=== PATIENT | male | born 1975 | race Caucasian/White ===

== ENCOUNTER 2020-01-06 20:19 | Inpatient (IN) ==
[2020-01-06 20:53] LABS: Urine Bilirubin Negative (NEGATIVE); Urine Blood Negative /ul (NEGATIVE); Urine Ketone 5 mg/dL (NEGATIVE); Urine Nitrite Negative (NEGATIVE); Urine Protein Negative (NEGATIVE); Urine Specific Gravity <=1.005 SP.GR. (1.005-1.030); Urine Urobilinogen Normal (NORMAL)
[2020-01-06] MEDS ORDERED: NYSTATIN ORAL.SUSP PO ONE (20:53)
--- NOTE | 2020-01-06 20:54 | ERNOTE ---
Medical Problem HPI - General Chief Complaint: Nausea/Vomiting Time Seen by Provider: 01/06/20 20:38 Source: patient, RN notes reviewed Exam Limitations: no limitations - Immun/Allergies/Home Medications Immunizations: IMMUNIZATION HX Immunizations Up to Date Yes History of Influenza Vaccine Yes Allergies/Adverse Reactions: Allergies No Known Allergies Allergy (Unverified 01/06/20 20:34) Home Medications: HOME MEDICATIONS Citalopram HBr 05/29/14 [Last Taken Unknown] Divalproex Sodium 05/29/14 [Last Taken Unknown] Tramadol HCl 05/29/14 [Last Taken Unknown] - History of Present History Narrative: Patient is a 44-year-old white male with past medical history significant for prediabetes, hypertension and morbid obesity, with recent 45 pound weight loss, has had several days of polyuria and polydipsia, white substance around the glans of his penis, sore throat and tongue, increasing fatigue, diarrhea and vomiting. 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 He denies any fevers or chills, but does have malaise and body aches. He denies headache, cough or shortness of breath or chest pain. [facility] with labs being done but has no results of those and is concerned about progression of his symptoms and how infectious he might be. Because of this he came to the ER for evaluation. Timing: getting worse Severity: moderate Modifying Factors - (Improves): Present: rest Modifying Factors - (Worsens): Present: eating Review of Systems - Review of Systems Constitutional: Present: fatigue, malaise. Absent: fever, chills, weakness EYE: Absent: blurred vision, double vision ENT: Present: sore throat. Absent: nose congestion, nasal drainage, throat swelling Respiratory: Absent: shortness of breath, cough, orthopnea Cardiology: Absent: chest pain, palpitations, edema, claudication Gastrointestinal/Abdominal: Present: nausea, vomiting, diarrhea. Absent: constipation, abdominal pain, eating less, drinking less Genitourinary: Present: See HPI, frequency, pain, dysuria. Absent: hematuria Musculoskeletal: Absent: back pain, muscle pain, muscle stiffness, neck pain Skin: Present: See HPI, rash, lesions, lumps. Absent: dryness Neurological: Absent: anxiety, depressed Endocrine: Present: increased thirst, increased urine. Absent: excessive sweating, flushing, intolerance to heat, intolerance to cold, increased hunger, unexplained weight gain Hematologic/Lymphatic: Absent: easy bruising, easy bleeding Psych: Absent: anxiety, depressed Medical History (Last Reviewed 01/06/20 @ 20:50 by Raymundo Alvarado MD) Hypertension PTSD (post-traumatic stress disorder) Pre-diabetes Surgical History: Surgical History (Last Reviewed 01/06/20 @ 20:50 by Raymundo Alvarado MD) History of knee surgery Social History: (Last Reviewed 01/06/20 @ 20:50 by Raymundo Alvarado MD) Tobacco: Smoking Status: Former smoker Physical Exam - Physical Exam General Appearance: Present: wd/wn, alert, mild distress, moderate distress, obese Head Exam: Present: normal inspection, no evidence of injury Eye Exam: Normal inspection: bilateral, PERRL: bilateral, EOMI: bilateral Ears, Nose, Throat: Present: normal except -, dry mucous membranes - With white plaque on the tongue and uvula. Neck: Present: normal inspection, nontender, supple, full range of motion Respiratory: Present: no respiratory distress Cardiovascular/Chest: Present: regular rate, rhythm Gastrointestinal/Abdominal: Present: normal bowel sounds, nontender, nondistended, soft, no organomegaly Male Genitals Exam: Present: erythema, other - white plaque at base of glans, erythema of the distal skin on shaft. Absent: urethral discharge Extremity Exam: Present: no edema Neurological Exam: Present: alert, oriented, normal mood/affect, no motor/sensory deficits Skin Exam: Present: normal color, warm/dry Progress - Results and Orders Patient's Lab Results:: I have reviewed the patient's lab results. Results and Orders: CBC is normal. UA is negative except for glucose of 1000. Laboratory Tests 01/06/20 01/06/20 20:55 20:55 Influenza Type A Ag Negative Influenza Type B Ag Negative Group A Strep Rapid Negative Glucose is 634, patient is diabetic and given symptoms would be concern for possible ketoacidosis. Will check an ABG and serum ketones. We will also give patient a liter of IV saline and possibly some IV insulin. Laboratory Tests 01/06/20 20:55 Serum Ketones Positive - 20mg/dl H Laboratory Tests 01/06/20 01/06/20 20:55 20:55 Sodium 128 L Plasma Sodium 137 Potassium 3.9 Chloride 92 L Carbon Dioxide 26.3 Anion Gap 13.6 BUN 8 Creatinine 1.15 Est GFR (Non-Af Amer) 74 BUN/Creatinine Ratio 7.0 L Random Glucose 634 H Mean Blood Glucose 264 Hemoglobin A1c 10.5 H Calcium 8.8 Calcium Adj for Albumin 8.7 Total Bilirubin 1.2 H AST 69 H ALT 135 H Alkaline Phosphatase 208 H Total Protein 7.2 Albumin 3.7 Findings consistent with diabetic ketoacidosis. We will continue IV fluids. Aw aiting ABG results but anticipate admission to hospital with DKA protocol. Patient does appear to be fairly stable but lab results are concerning Laboratory Tests 01/06/20 21:45 pCO2 40.0 pO2 69.7 L HCO3 25.5 Total CO2 26.7 H Base Excess 1.1 ABG pH 7.42 ABG O2 Sat (Measured) 94.4 pH is normal, no acidosis. Patient is just hyperglycemic with serum ketones. - Vital Signs Patient's Vital Signs:: I have reviewed the patient's vital signs. Vital Signs: Vital Signs 01/06/20 20:23 Temperature 36.3 C Pulse Rate 88 Respiratory Rate 18 Blood Pressure 185/97 H O2 Sat by Pulse Oximetry 95 - EKG EKG #1 EKG: NSR, no ST T wave changes EKG read: Interp. by me - Progress/Reassessment Chief Complaint: Nausea/Vomiting Progress Note-Subjective: 01/06/20 21:30 Patient also shows me a carbuncle on his right side just inferior to his right axilla. Does not appear amenable to I&D. Because of this we will give him a shot of Rocephin. - Transfer of Care Expected Disposition: Admit Additional Notes: Case discussed with Dr. Garnica. Given normal CO2 and anion gap patient is well compensated, but given glucose elevation and significant ketones feel it is appropriate to treat him using our DKA protocol, but fits a hyperosmolar h yperglycemic state. Will admit to the hospital for this. Do not believe that he needs SCU status given stability and appearance of the patient Plan - Plan Plan: Overall given patient's physical exam and complaints I would be concerned about diabetes. Will check CMP. Will also check CBC make sure there is no infectious etiology along with strep and influenza. Because of his findings are consistent with thrush we will give him some nystatin p.o. Depending on what his blood sugars come back at we will determine whether we do any further testing. Patient has a blood glucose of 634 so would be concerned about possible diabetic ketoacidosis will add ABG and serum ketones. Given a liter of IV fluids. Labs were discussed with patient. Discussed admission to the hospital with the patient and he is amenable to this. We will start the DKA protocol initial orders. More complete orders will be done in his admission order set. Given patient's elevated blood pressure despite IV fluids we will give him 20 mg of lisinopril and monitor his blood pressures from this. He states he has been on as many as 4 blood pressure medicines in the past but had stopped those secondary to significant weight loss. Given body habitus would suspect possible obstructive sleep apnea as a contributor to his issues. Departure Clinical Impression: Balanitis, Elevated blood pressure reading with diagnosis of hypertension, Thrush of mouth and esophagus, Acute hyperglycemia, Diabetic ketosis without coma Diabetes Qualifiers: Diabetes mellitus type: type 2 Diabetes mellitus jail insulin use: without jail use Diabetes mellitus complication status: without complication Qualified Code(s): E11.9 - Type 2 diabetes mellitus without complications - Departure Disposition: Still a patient Condition: Stable
[2020-01-06 21:04] LABS: Hematocrit 46.4 % (42.0-52.0); Mean Cell Volume 82.4 fl (78-100); Mean Corpuscular Hemoglobin 28.4 pg (27-31); Mean Corpuscular Hgb Conc 34.5 g/dl (32-36); Mean Platelet Volume 11.7 fl (8-11.3); Neutrophil # 4.8 K/mm3 (1.3-6.0); Neutrophil % 65.2 % (42-75.0); Platelet Count 170 K/mm3 (150-450); Red Blood Count 5.63 M/mm3 (4.7-6.0); Red Cell Distribution Width 12.7 % (11.5-14.0); White Blood Count 7.3 K/mm3 (4.0-10.5)
[2020-01-06 21:04] LABS: Urine Appearance Clear (CLEAR); Urine Color Pale Yellow
[2020-01-06 21:05] LABS: Urine Bacteria None Seen; Urine RBC None Seen /hpf (0-5); Urine WBC None Seen /hpf (0-5)
[2020-01-06 21:17] LABS: Albumin * 3.7 gm/dl (3.4-5.0); Anion Gap 13.6 mmol/L (6.8-13.8); Bilirubin, Total 1.2 mg/dL (0.0-1.1); Ca. Corrected For Albumin 8.7 mg/dL (8.4-10.2); Calcium * 8.8 mg/dL (7.9-10.9); Carbon Dioxide 26.3 mmol/L (24-32.6); Potassium 3.9 mmol/L (3.4-4.6); Total Protein 7.2 gm/dL (6.2-8.2)
[2020-01-06] MEDS ORDERED: NORMAL SALINE 1,000 ML IV ONE (21:25)
[2020-01-06 21:27] LABS: Hemoglobin A1C 10.5 % (4.00-6.0)
[2020-01-06] MEDS ORDERED: LIDOCAINE HCL 50 ML VIAL IM ONE (21:31)
[2020-01-06] MEDS ORDERED: INSULIN REGULAR, HUMAN 100 UNITS/ML VIAL IV ONE (21:58)
[2020-01-06] MEDS ORDERED: INSULIN REGULAR, HUMAN 100 UNITS in NORMAL SALINE 100 ML IV PRN ×2 (22:24)
[2020-01-06] MEDS ORDERED: LISINOPRIL 10 MG TABLET ONE (22:37)
[2020-01-06] MEDS ORDERED: LISINOPRIL 20 MG TABLET PO ONE (22:45)
[2020-01-06] MEDS: POTASSIUM CHLORIDE 20 MEQ in NORMAL SALINE 1,000 ML IV SCH (23:21)
[2020-01-07] MEDS: POTASSIUM CHLORIDE 20 MEQ in NORMAL SALINE 1,000 ML IV SCH ×2 (03:35→12:00)
[2020-01-07 06:32] LABS: Hematocrit 44.2 % (42.0-52.0); Hemoglobin 14.8 gm/dL (13.5-18.0); Mean Cell Volume 83.2 fl (78-100); Mean Corpuscular Hemoglobin 27.9 pg (27-31); Mean Corpuscular Hgb Conc 33.5 g/dl (32-36); Neutrophil # 3.6 K/mm3 (1.3-6.0); Neutrophil % 43.2 % (42-75.0); Platelet Count 173 K/mm3 (150-450); Red Blood Count 5.31 M/mm3 (4.7-6.0); Red Cell Distribution Width 12.9 % (11.5-14.0); White Blood Count 8.4 K/mm3 (4.0-10.5)
[2020-01-07 06:46] LABS: Albumin * 3.2 gm/dl (3.4-5.0); Anion Gap 11.1 mmol/L (6.8-13.8); BUN/Creatinine Ratio 8.4 (9.0-21.6); Ca. Corrected For Albumin 8.6 mg/dL (8.4-10.2); Calcium * 8.3 mg/dL (7.9-10.9); Carbon Dioxide 28.7 mmol/L (24-32.6); Potassium 2.8 mmol/L (3.4-4.6); Total Protein 6.3 gm/dL (6.2-8.2)
[2020-01-07 07:56] LABS: Urine Bilirubin Negative (NEGATIVE); Urine Blood Negative /ul (NEGATIVE); Urine Ketone Negative (NEGATIVE); Urine Nitrite Negative (NEGATIVE); Urine Protein Negative (NEGATIVE); Urine Urobilinogen Normal (NORMAL)
[2020-01-07 08:03] LABS: Urine Appearance Clear (CLEAR); Urine Color Dark Yellow; Urine RBC None Seen /hpf (0-5); Urine WBC None Seen /hpf (0-5)
[2020-01-07 08:04] LABS: Urine Bacteria TRACE
[2020-01-07] MEDS ORDERED: NYSTATIN ORAL.SUSP PO SCH (09:00)
[2020-01-07] MEDS ORDERED: LISINOPRIL 20 MG TABLET PO SCH (09:00)
[2020-01-07] MEDS ORDERED: NYSTATIN TP SCH (09:00)
[2020-01-07] MEDS ORDERED: TRIAMCIN APPL TP SCH (09:00)
[2020-01-07] MEDS: NYSTATIN TP SCH ×2 (09:39→21:02)
[2020-01-07] MEDS: TRIAMCIN APPL TP SCH ×2 (09:39→21:02)
[2020-01-07] MEDS ORDERED: POTASSIUM CHLORIDE 20 MEQ TABLET.SA PO ONE (11:25)
--- NOTE | 2020-01-07 11:25 | HP ---
Chief Complaint - Chief Complaint Date of Service: 01/07/20 Time of Service: 09:00 Chief Complaint: New onset diabetes, hyperglycemia, dehydration, oral and penile candidiasis, boil in the right lateral chest, abnormal LFTs, ketosis without acidosis History of Present Illness: Tariq Millan is a 44-year-old male who is otherwise in good health. He presented with polydipsia and polyuria and complaining of mouth soreness and a penile rash. He was weak and lightheaded and nauseous. Evaluation emergency room revealed he was diabetic with blood sugars greater than 600 and urine had ketones. The CO2 on his electrolytes was 26. Urine is clear except for large amount of glucose. Hemoglobin A1c is 10.7. He reports having a boil in the right upper lateral chest that is increasingly more painful. His renal status is normal. His potassium on admission was 3.5 but this morning after the insulin drip it is down to 2.8. He is admitted on an insulin drip through the night. I received a call earlier this morning that his blood sugar was at 80 and so I had them discontinue the drip at that time. This morning's blood sugar was 137 but 2 hours after eating is 257. I will start him on metformin, sitagliptin, and Humalog per low range sliding scale. Medical History (Last Reviewed 01/07/20 @ 00:09 by Nedra Ascencio RN) Hypertension PTSD (post-traumatic stress disorder) Pre-diabetes Surgical History: Surgical History (Last Reviewed 01/07/20 @ 00:09 by Nedra Ascencio RN) History of knee surgery Social History: (Last Reviewed 01/07/20 @ 00:09 by Nedra Ascencio RN) Tobacco: Smoking Status: Former smoker Review Of Systems (GEN) - Review of Systems Generalized/Overall Review: Present: Weakness, Malaise, Fatigue, Weight loss - He reports a 44 pound weight loss in preparation for needing a right knee replaced. EENTM: Present: Mouth Pain Respiratory: Present: No Symptoms Reported Cardiac: Present: No Symptoms Reported Abdominal: Present: Nausea. Absent: Vomiting Genitourinary: Present: Polyuria Neurological: Present: No Symptoms Reported, Weakness Skin: Present: Lesions - Boil on right lateral chest Endocrine: Present: Increased Thirst Immunizations: IMMUNIZATION HX Immunizations Up to Date Yes History of Influenza Vaccine Yes Allergies/Adverse Reactions: Allergies Allergy/AdvReac Type Severity Reaction Status Date / Time No Known Allergies Allergy Unverified 01/06/20 20:34 Home Medications: HOME MEDICATIONS NK 01/07/20 [Last Taken Unknown] Exam - Exam Vital Signs: Vital Signs - Last Taken Temp 36.8 C 01/07/20 07:29 Pulse 85 01/07/20 07:29 Resp 18 01/07/20 07:29 BP 145/85 H 01/07/20 07:29 Pulse Ox 97 01/07/20 07:29 Constitutional: Present: Alert, Oriented x3, Cooperative, Well developed, Well nourished, No distress ENT Exam: Present: normal ENT inspection, hearing grossly normal, pharynx normal, TMs normal Eye Exam: bilateral eye: normal inspection, PERRL, EOMI Neck: Present: non-tender, full range of motion, supple, normal inspection, trachea midline, limited range of motion Back Exam: Present: normal inspection Breasts: Present: Nontender Respiratory: Present: chest non-tender, lungs clear, normal breath sounds, no respiratory distress, no accessory muscle use Cardiovascular/Chest: Present: normal peripheral pulses, regular rate, rhythm, no chest tenderness, no edema, no gallop, no JVD, no murmur, no rub Peripheral Pulses: carotid (R): 2+, carotid (L): 2+, radial (R): 2+, radial (L): 2+ Abdomen: Present: Normal bowel sounds, soft, nontender, nondistended, no rebound tenderness, no hepatospenomegaly, no masses, obese /Rectal: Present: Other - Penile candidiasis rash Extremity: Present: normal range of motion, normal inspection, no pedal edema, no calf tenderness, other - Chronic right knee pain Skin Exam: Present: normal color, other - Boil on right lateral chest is not yet pointing. It is 5 cm in diameter and red and warm to touch. 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, normal cerebellar test, no motor/sensory deficits, alert, normal mood/affect, oriented x 3 Appearance: Present: appropriate appearance, appropriate insight, neat, no memory impairment Eye contact: Present: cooperative, good eye contact, normal speech Thoughts: Present: normal thought pattern, no apparent hallucination Diagnostic Studies: Abnormal Lab Results 01/06/20 01/06/20 01/06/20 Range/Units 20:44 20:47 20:55 MPV 11.7 H (8-11.3) fl Lymphocytes # (1.5-3.5) k/mm3 pO2 (83.0-108.0) mmHg Total CO2 (19.0-24.0) mmol/L Sodium 128 L (132-142) mmol/L Potassium (3.4-4.6) mmol/L Chloride 92 L (97-106) mmol/L BUN/Creatinine Ratio 7.0 L (9.0-21.6) Random Glucose 634 H (70-110) mg/dL Hemoglobin A1c (4.00-6.0) % Total Bilirubin 1.2 H (0.0-1.1) mg/dL AST 69 H (0-48) U/L ALT 135 H (19-67) U/L Alkaline Phosphatase 208 H (50-170) U/L Albumin (3.4-5.0) gm/dl Urine Glucose (UA) >=1000 H (NEGATIVE) mg/dL Serum Ketones (NEGATIVE) 01/06/20 01/06/20 01/06/20 Range/Units 20:55 20:55 21:45 MPV (8-11.3) fl Lymphocytes # (1.5-3.5) k/mm3 pO2 69.7 L (83.0-108.0) mmHg Total CO2 26.7 H (19.0-24.0) mmol/L Sodium (132-142) mmol/L Potassium (3.4-4.6) mmol/L Chloride (97-106) mmol/L BUN/Creatinine Ratio (9.0-21.6) Random Glucose (70-110) mg/dL Hemoglobin A1c 10.5 H (4.00-6.0) % Total Bilirubin (0.0-1.1) mg/dL AST (0-48) U/L ALT (19-67) U/L Alkaline Phosphatase (50-170) U/L Albumin (3.4-5.0) gm/dl Urine Glucose (UA) (NEGATIVE) mg/dL Serum Ketones Positive - 20mg/dl H (NEGATIVE) 01/07/20 01/07/20 01/07/20 Range/Units 06:20 06:20 07:23 MPV 12.0 H (8-11.3) fl Lymphocytes # 3.81 H (1.5-3.5) k/mm3 pO2 (83.0-108.0) mmHg Total CO2 (19.0-24.0) mmol/L Sodium (132-142) mmol/L Potassium 2.8 L D (3.4-4.6) mmol/L Chloride (97-106) mmol/L BUN/Creatinine Ratio 8.4 L (9.0-21.6) Random Glucose (70-110) mg/dL Hemoglobin A1c (4.00-6.0) % Total Bilirubin (0.0-1.1) mg/dL AST 62 H (0-48) U/L ALT 108 H (19-67) U/L Alkaline Phosphatase (50-170) U/L Albumin 3.2 L (3.4-5.0) gm/dl Urine Glucose (UA) >=1000 H (NEGATIVE) mg/dL Serum Ketones (NEGATIVE) Laboratory Results WBC 8.4 K/mm3 (4.0-10.5) 01/07/20 06:20 RBC 5.31 M/mm3 (4.7-6.0) 01/07/20 06:20 Hgb 14.8 gm/dL (13.5-18.0) 01/07/20 06:20 Hct 44.2 % (42.0-52.0) 01/07/20 06:20 MCV 83.2 fl (78-100) 01/07/20 06:20 MCH 27.9 pg (27-31) 01/07/20 06:20 MCHC 33.5 g/dl (32-36) 01/07/20 06:20 RDW 12.9 % (11.5-14.0) 01/07/20 06:20 Plt Count 173 K/mm3 (150-450) 01/07/20 06:20 MPV 12.0 fl (8-11.3) H 01/07/20 06:20 Immature Gran % (Auto) 0.10 % (0.001-0.429) 01/07/20 06:20 Immature Gran # (Auto) 0.01 K/mm3 (0.000-0.0310) 01/07/20 06:20 Neutrophils % 43.2 % (42-75.0) 01/07/20 06:20 Lymphocytes % 45.4 % (20-51) 01/07/20 06:20 Monocytes % 7.6 % (0.0-9) 01/07/20 06:20 Eosinophils % 2.9 % (0.0-3.0) 01/07/20 06:20 Basophils % 0.8 % (0.0-1.0) 01/07/20 06:20 Nucleated RBC % 0.0 k/mm3 (0-1) 01/07/20 06:20 Neutrophils # 3.6 K/mm3 (1.3-6.0) 01/07/20 06:20 Lymphocytes # 3.81 k/mm3 (1.5-3.5) H 01/07/20 06:20 Monocytes # 0.6 k/mm3 (0.0-1.0) 01/07/20 06:20 Eosinophils # 0.2 k/mm3 (0.0-0.7) 01/07/20 06:20 Absolute Basophils 0.1 k/mm3 (0.0-0.1) 01/07/20 06:20 pCO2 40.0 mmHg (35.0-48.0) 01/06/20 21:45 pO2 69.7 mmHg (83.0-108.0) L 01/06/20 21:45 HCO3 25.5 mmol/L (21.0-28.0) 01/06/20 21:45 Total CO2 26.7 mmol/L (19.0-24.0) H 01/06/20 21:45 Base Excess 1.1 mmol/L (-2.0-3.0) 01/06/20 21:45 ABG pH 7.42 (7.35-7.45) 01/06/20 21:45 ABG O2 Sat (Measured) 94.4 % (94.0-98.0) 01/06/20 21:45 Sodium 140 mmol/L (132-142) 01/07/20 06:20 Plasma Sodium 140 mmol/L (130-142) 01/07/20 06:20 Potassium 2.8 mmol/L (3.4-4.6) L D 01/07/20 06:20 Chloride 103 mmol/L (97-106) 01/07/20 06:20 Carbon Dioxide 28.7 mmol/L (24-32.6) 01/07/20 06:20 Anion Gap 11.1 mmol/L (6.8-13.8) 01/07/20 06:20 BUN 7 mg/dL (6-23) 01/07/20 06:20 Creatinine 0.83 mg/dL (0.4-1.4) 01/07/20 06:20 Est GFR (Non-Af Amer) 107 mL/min (60-130) D 01/07/20 06:20 BUN/Creatinine Ratio 8.4 (9.0-21.6) L 01/07/20 06:20 Random Glucose 108 mg/dL (70-110) D 01/07/20 06:20 Mean Blood Glucose 264 mg/dL 01/06/20 20:55 Hemoglobin A1c 10.5 % (4.00-6.0) H 01/06/20 20:55 Lactic Acid, Venous 1.6 mmol/L (0.4-2.0) 01/06/20 22:15 Calcium 8.3 mg/dL (7.9-10.9) 01/07/20 06:20 Calcium Adj for Albumin 8.6 mg/dL (8.4-10.2) 01/07/20 06:20 Total Bilirubin 1.0 mg/dL (0.0-1.1) 01/07/20 06:20 AST 62 U/L (0-48) H 01/07/20 06:20 ALT 108 U/L (19-67) H 01/07/20 06:20 Alkaline Phosphatase 140 U/L (50-170) 01/07/20 06:20 Total Protein 6.3 gm/dL (6.2-8.2) 01/07/20 06:20 Albumin 3.2 gm/dl (3.4-5.0) L 01/07/20 06:20 Urine Color Dark yellow 01/07/20 07:23 Urine Appearance Clear (CLEAR) 01/07/20 07:23 Urine pH 6.0 pH (5.0-7.0) 01/07/20 07:23 Ur Specific [place] 1.020 SP.GR. (1.005-1.030) 01/07/20 07:23 Urine Protein Negative mg/dL (NEGATIVE) 01/07/20 07:23 Urine Glucose (UA) >=1000 mg/dL (NEGATIVE) H 01/07/20 07:23 Urine Ketones Negative mg/dL (NEGATIVE) 01/07/20 07:23 Urine Blood Negative /ul (NEGATIVE) 01/07/20 07:23 Urine Nitrate Negative (NEGATIVE) 01/07/20 07:23 Urine Bilirubin Negative mg/dl (NEGATIVE) 01/07/20 07:23 Urine Urobilinogen Normal EU/dl (NORMAL) 01/07/20 07:23 Ur Leukocyte Esterase Negative /ul (NEGATIVE) 01/07/20 07:23 Urine RBC None seen /hpf (0-5) 01/07/20 07:23 Urine WBC None seen /hpf (0-5) 01/07/20 07:23 Ur Epithelial Cells 0-5 /hpf (0-5) 01/07/20 07:23 Urine Bacteria Trace (NONE) 01/07/20 07:23 Urine Culture Comments No culture indicated 01/07/20 07:23 Serum Ketones Positive - 20mg/dl (NEGATIVE) H 01/06/20 20:55 Influenza Type A Ag Negative (NEGATIVE) 01/06/20 20:55 Influenza Type B Ag Negative (NEGATIVE) 01/06/20 20:55 Group A Strep Rapid Negative (NEGATIVE) 01/06/20 20:55 Assessment/Plan - Narrative Narrative: 1. Insulin drip was started in ER discontinued about 4:00 this morning as blood sugars had dropped from 600+to 80. 2. Start low range sliding scale until blood sugars are stabilized on oral metformin and sitagliptin 3. Repeat morning lab 4. Start Mycelex troches for the oral candidiasis and Chlortrimazole cream for the penile candidiasis 5. Apply warm moist heat to the right lateral chest wall to mature the boil. 30 minutes twice daily. 6. Add potassium 20 mEq now and recheck in 4 hours. 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
[2020-01-07] MEDS: ACETAMINOPHEN 500 MG TABLET PO PRN (12:07)
[2020-01-07] MEDS: LISINOPRIL 10 MG TABLET PO SCH (12:08)
[2020-01-07] MEDS: amLODIPine BESYLATE 5 MG TABLET PO SCH (12:09)
[2020-01-07] MEDS: sitaGLIPtin PHOSPHATE 50 MG TABLET PO SCH (12:09)
[2020-01-07] MEDS: CLOTRIMAZOLE 10 MG TROCHE MM SCH ×2 (12:15→21:03)
[2020-01-07] MEDS: INSULIN LISPRO 100 UNITS/ML VIAL SC SCH ×2 (12:17→17:22)
[2020-01-07] MEDS: metFORMIN HCL 500 MG TABLET PO SCH (17:21)
[2020-01-08 06:52] LABS: Hematocrit 44.8 % (42.0-52.0); Hemoglobin 14.8 gm/dL (13.5-18.0); Mean Cell Volume 83.9 fl (78-100); Mean Corpuscular Hemoglobin 27.7 pg (27-31); Mean Platelet Volume 12.2 fl (8-11.3); Neutrophil % 51.1 % (42-75.0); Platelet Count 132 K/mm3 (150-450); Red Blood Count 5.34 M/mm3 (4.7-6.0); Red Cell Distribution Width 12.9 % (11.5-14.0); White Blood Count 5.8 K/mm3 (4.0-10.5)
[2020-01-08 07:06] LABS: Albumin * 3.1 gm/dl (3.4-5.0); Anion Gap 12.8 mmol/L (6.8-13.8); BUN/Creatinine Ratio 11.5 (9.0-21.6); Bilirubin, Total 1.3 mg/dL (0.0-1.1); Ca. Corrected For Albumin 8.7 mg/dL (8.4-10.2); Calcium * 8.3 mg/dL (7.9-10.9); Carbon Dioxide 27.8 mmol/L (24-32.6); Potassium 3.6 mmol/L (3.4-4.6); Total Protein 6.2 gm/dL (6.2-8.2)
[2020-01-08] MEDS: INSULIN LISPRO 100 UNITS/ML VIAL SC SCH ×3 (07:39→17:59)
[2020-01-08] MEDS ORDERED: amLODIPine BESYLATE 10 MG TABLET PO SCH (09:30)
[2020-01-08] MEDS ORDERED: INSULIN GLARGINE,HUM.REC.ANLOG 100 UNITS/ML VIAL SC SCH (09:30)
[2020-01-08] MEDS: metFORMIN HCL 500 MG TABLET PO SCH ×2 (09:51→17:58)
[2020-01-08] MEDS: CLOTRIMAZOLE 10 MG TROCHE MM SCH ×2 (09:51→21:33)
[2020-01-08] MEDS: sitaGLIPtin PHOSPHATE 50 MG TABLET PO SCH (09:52)
[2020-01-08] MEDS: LISINOPRIL 20 MG TABLET PO SCH (09:53)
[2020-01-08] MEDS: PRAZOSIN HCL 1 MG CAPSULE PO SCH (09:53)
[2020-01-08] MEDS: NYSTATIN TP SCH ×2 (09:54→21:33)
[2020-01-08] MEDS: TRIAMCIN APPL TP SCH ×2 (09:54→21:33)
[2020-01-08] MEDS: LISINOPRIL 10 MG TABLET PO SCH (09:55)
[2020-01-08] MEDS: amLODIPine BESYLATE 5 MG TABLET PO SCH (09:55)
--- NOTE | 2020-01-08 11:09 | PN ---
Subjective - Date and Time Seen Date: 01/08/20 Time: 09:20 Subjective Narrative: Tariq Millan has had an uneventful night. All his symptoms are improving. His xerostomia is gone and his soreness in his mouth is already improving with the Mycelex troches. His balanitis is also improving. Blood sugars have been in the 240-280 range on metformin, sitagliptin, and mealtime low range sliding scale Humalog insulin. I will add 12 units of basal insulinglargine once daily starting now. We will do diabetic education today regarding diet and regarding self administration of insulin. His polydipsia and polyuria have resolved. His potassium was low at 2.8 yesterday but has improved to 3.6 today with 20 mEq of KCl. I have increased his blood pressure medicines back to what he was taking on admission which includes 10 mg of amlodipine, 20 mg of lisinopril, prazosin 2 mg (which is taken primarily for PTSD). I have discontinued the hydrochlorothiazide. I discussed diet with him today and that he should avoid pop and even diet soda. He expresses understanding. Anticipate discharge tomorrow morning. Objective - Review of Systems Generalized/Overall Review: Reports: No Symptoms Reported EENTM: Reports: No Symptoms Reported, Mouth Pain - Is now resolved Respiratory: Reports: No Symptoms Reported Cardiac: Reports: No Symptoms Reported Abdominal: Reports: No Symptoms Reported Genitourinary Symptoms: Reports: No Symptoms Reported, Polyuria - Is now resolved Musculoskeletal Complaints: Reports: No Symptoms Reported Neurological: Reports: No Symptoms Reported, Headache - Are improved today. Skin: Reports: No Symptoms Reported Endocrine: Reports: No Symptoms Reported - Vitals Vitals: Last Vital Signs Temp 36.5 C 01/08/20 10:44 Pulse 74 01/08/20 10:44 Resp 16 01/08/20 10:44 BP 128/72 01/08/20 10:44 Pulse Ox 94 01/08/20 10:44 - Abnormal Lab Findings Abnormal Lab Findings: Abnormal Lab Results 01/08/20 01/08/20 Range/Units 06:10 06:10 Plt Count 132 L (150-450) K/mm3 MPV 12.2 H (8-11.3) fl Immature Gran % (Auto) 0.00 L (0.001-0.429) % Eosinophils % 3.5 H (0.0-3.0) % Random Glucose 260 H D (70-110) mg/dL Total Bilirubin 1.3 H (0.0-1.1) mg/dL AST 74 H (0-48) U/L ALT 114 H (19-67) U/L Albumin 3.1 L (3.4-5.0) gm/dl - EKG/Xray Findings EKG: NSR EKG read: Interp. by me - Exam Constitutional: Present: Alert, Oriented x3, Cooperative, Well developed, Well nourished, No distress ENT Exam: Present: normal ENT inspection, hearing grossly normal, pharynx norm al, TMs normal Neck: Present: non-tender, full range of motion, supple, normal inspection, trachea midline Breasts: Present: Nontender Respiratory: Present: chest non-tender, lungs clear, normal breath sounds, no respiratory distress, no accessory muscle use Cardiovascular/Chest: Present: normal peripheral pulses, regular rate, rhythm, no chest tenderness, no edema, no gallop, no JVD, no murmur, no rub Abdomen: Present: Normal bowel sounds, soft, nontender, nondistended, no rebound tenderness, no hepatospenomegaly, no masses, obese /Rectal: Present: Exam deferred, External genitalia normal Extremity: Present: normal range of motion, non-tender, normal inspection, no pedal edema, no calf tenderness, normal capillary refill Skin Exam: Present: normal color, warm/dry, no cyanosis Lymphatic: Present: no adenopathy Neurologic: 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 Add Lantus (glargine) 12 units subcu daily starting now 2. Increase amlodipine to 10 mg daily 3. Increase lisinopril to 20 mg daily 4. Resume prazosin 2 mg daily 5. Discontinue hydrochlorothiazide 6. Diabetic education today 7. Instructed on insulin administration. And instructed on checking blood sugars. 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
[2020-01-08] MEDS: ACETAMINOPHEN 500 MG TABLET PO PRN (22:38)
[2020-01-09] MEDS: INSULIN LISPRO 100 UNITS/ML VIAL SC SCH ×2 (07:13→12:00)
[2020-01-09] MEDS ORDERED: amLODIPine BESYLATE 10 MG TABLET PO SCH ×2 (09:00)
[2020-01-09] MEDS ORDERED: LISINOPRIL 20 MG TABLET PO SCH (09:00)
[2020-01-09] MEDS ORDERED: INSULIN GLARGINE,HUM.REC.ANLOG 100 UNITS/ML VIAL SC SCH (09:00)
[2020-01-09] MEDS: PRAZOSIN HCL 1 MG CAPSULE PO SCH (09:07)
[2020-01-09] MEDS: sitaGLIPtin PHOSPHATE 50 MG TABLET PO SCH (09:07)
[2020-01-09] MEDS: LISINOPRIL 20 MG TABLET PO SCH (09:07)
[2020-01-09] MEDS: TRIAMCIN APPL TP SCH (09:08)
[2020-01-09] MEDS: NYSTATIN TP SCH (09:08)
[2020-01-09] MEDS: CLOTRIMAZOLE 10 MG TROCHE MM SCH (09:10)
--- NOTE | 2020-01-09 09:21 | DS ---
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 Evaluation in the emergency room revealed a blood sugar over 600. He was dehydrated and ketotic but not acidotic. He was admitted and placed on insulin drip. His blood sugars normalized and he rehydrated well he is feeling much better now. Blood sugars are still running a little too high so I have adjusted his insulin this morning to a medium range sliding scale for the lispro and increased the basal insulin to 18 units. He will need to be off work for rest of this week. 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 He does not have any signs or symptoms of diabetic neuropathy or retinopathy. He is usually a patient at the [facility] and will go there for his follow-up visits. Therefore I will not be scheduling him in to see me. Procedures Performed: none Care Plan Goals: Normalization of blood sugars and blood pressure and continued weight reduction. Results and Findings: Lab Pending Results 01/06/20 20:44: WBC 7.3, RBC 5.63, Hgb 16.0, Hct 46.4, MCV 82.4, MCH 28.4, MCHC 34.5, RDW 12.7, Plt Count 170, MPV 11.7 H, Immature Gran % (Auto) 0.10, Immature Gran # (Auto) 0.01, Neutrophils % 65.2, Lymphocytes % 26.1, Monocytes % 5.8, Eosinophils % 1.8, Basophils % 1.0, Nucleated RBC % 0.0, Neutrophils # 4.8, Lymphocytes # 1.90, Monocytes # 0.4, Eosinophils # 0.1, Absolute Basophils 0.1 01/06/20 20:47: Urine Color Pale yellow, Urine Appearance Clear, Urine pH 6.0, Ur Specific [place] <=1.005, Urine Protein Negative, Urine Glucose (UA) >=1000 H, Urine Ketones 5, Urine Blood Negative, Urine Nitrate Negative, Urine Bilirubin Negative, Urine Urobilinogen Normal, Ur Leukocyte Esterase Negative, Urine RBC None seen, Urine WBC None seen, Ur Epithelial Cells 0-5, Urine Bacteria None seen, Urine Culture Comments No culture indicated 01/06/20 20:55: Sodium 128 L, Plasma Sodium 137, Potassium 3.9, Chloride 92 L, Carbon Dioxide 26.3, Anion Gap 13.6, BUN 8, Creatinine 1.15, Est GFR (Non-Af Amer) 74, BUN/Creatinine Ratio 7.0 L, Random Glucose 634 H, Calcium 8.8, Calcium Adj for Albumin 8.7, Total Bilirubin 1.2 H, AST 69 H, ALT 135 H, Alkaline Phosphatase 208 H, Total Protein 7.2, Albumin 3.7 01/06/20 20:55: Influenza Type A Ag Negative, Influenza Type B Ag Negative 01/06/20 20:55: Group A Strep Rapid Negative 01/06/20 20:55: Mean Blood Glucose 264, Hemoglobin A1c 10.5 H 01/06/20 20:55: Serum Ketones Positive - 20mg/dl H 01/06/20 21:45: pCO2 40.0, pO2 69.7 L, HCO3 25.5, Total CO2 26.7 H, Base Excess 1.1, ABG pH 7.42, ABG O2 Sat (Measured) 94.4 01/06/20 22:15: Lactic Acid, Venous 1.6 01/07/20 06:20: Sodium 140, Plasma Sodium 140, Potassium 2.8 L D, Chloride 103, Carbon Dioxide 28.7, Anion Gap 11.1, BUN 7, Creatinine 0.83, Est GFR (Non-Af Amer) 107 D, BUN/Creatinine Ratio 8.4 L, Random Glucose 108 D, Calcium 8.3, Calcium Adj for Albumin 8.6, Total Bilirubin 1.0, AST 62 H, ALT 108 H, Alkaline Phosphatase 140, Total Protein 6.3, Albumin 3.2 L 01/07/20 06:20: WBC 8.4, RBC 5.31, Hgb 14.8, Hct 44.2, MCV 83.2, MCH 27.9, MCHC 33.5, RDW 12.9, Plt Count 173, MPV 12.0 H, Immature Gran % (Auto) 0.10, Immature Gran # (Auto) 0.01, Neutrophils % 43.2, Lymphocytes % 45.4, Monocytes % 7.6, Eosinophils % 2.9, Basophils % 0.8, Nucleated RBC % 0.0, Neutrophils # 3.6, Lymphocytes # 3.81 H, Monocytes # 0.6, Eosinophils # 0.2, Absolute Basophils 0.1 01/07/20 07:23: Urine Color Dark yellow, Urine Appearance Clear, Urine pH 6.0, Ur Specific [place] 1.020, Urine Protein Negative, Urine Glucose (UA) >=1000 H, Urine Ketones Negative, Urine Blood Negative, Urine Nitrate Negative, Urine Bilirubin Negative, Urine Urobilinogen Normal, Ur Leukocyte Esterase Negative, Urine RBC None seen, Urine WBC None seen, Ur Epithelial Cells 0-5, Urine Bacteria Trace, Urine Culture Comments No culture indicated 01/07/20 15:11: Potassium 3.7 D 01/08/20 06:10: WBC 5.8 D, RBC 5.34, Hgb 14.8, Hct 44.8, MCV 83.9, MCH 27.7, MCHC 33.0, RDW 12.9, Plt Count 132 L, MPV 12.2 H, Immature Gran % (Auto) 0.00 L, Immature Gran # (Auto) 0.00, Neutrophils % 51.1, Lymphocytes % 38.3, Monocytes % 6.2, Eosinophils % 3.5 H, Basophils % 0.9, Nucleated RBC % 0.0, Neutrophils # 3.0, Lymphocytes # 2.22, Monocytes # 0.4, Eosinophils # 0.2, Absolute Basophils 0.1 01/08/20 06:10: Sodium 137, Plasma Sodium 140, Potassium 3.6, Chloride 100, Carbon Dioxide 27.8, Anion Gap 12.8, BUN 9, Creatinine 0.78, Est GFR (Non-Af Amer) 115, BUN/Creatinine Ratio 11.5, Random Glucose 260 H D, Calcium 8.3, Calcium Adj for Albumin 8.7, Total Bilirubin 1.3 H, AST 74 H, ALT 114 H, Alkaline Phosphatase 134, Total Protein 6.2, Albumin 3.1 L Discharge Location: Home Disposition: Home self-care Condition: Stable Face to Face Encounter completed per [facility] Guidelines: No Discharge Activity: Activity as tolerated Discharge Diet: Consistent carbs Problem Oriented Discharge Instructions to Patient/Family: Insulin Treatment for Diabetes Mellitus, Diabetes Mellitus and Foot Care, Preventing Hypoglycemia, Diabetes Mellitus and Skin Care, Diabetes Mellitus and Sick Day Management, Hyperglycemia, [id number], Diabetes Basics, Carbohydrate Counting for Diabetes Mellitus, Adult, Type 2 Diabetes Mellitus, Diagnosis, Adult, [id number], Blood Glucose Monitoring, Adult, Hypoglycemia, [id number] Complete Home Medications List: Complete Home Medication List: Lisinopril 20 mg PO DAILY 01/07/20 Prazosin HCl 2 mg PO DAILY 01/07/20 Acetaminophen [Tylenol] 500 mg PO Q4H PRN tab 01/09/20 Clotrimazole [Mycelex Junito] 10 mg MM BID #10 junito 01/09/20 Insulin Glargine,Hum.rec.anlog [Lantus] 18 units SC DAILY #3 01/09/20 Insulin Lispro [Humalog] See Protocol SC ACINS #5 01/09/20 Lisinopril [Zestril] 20 mg PO DAILY #0 tab 01/09/20 amLODIPine BESYLATE [Norvasc] 10 mg PO BID #60 tab 01/09/20 metFORMIN HCL [Glucophage] 1,000 mg PO BIDWM #60 tab 01/09/20 sitaGLIPtin PHOSPHATE [Januvia] 100 mg PO DAILY #30 tab 01/09/20 Forms: Patient Portal Registration
[2020-01-09 14:06] VITALS: BP 110/62
== END 2020-01-09 13:55 | disposition home or self-care (01) | DRG 638 ==
LOC: ER 20:19 → MS 22:13
PROVIDERS: ADMIT Family Medicine; ATTEND Family Medicine
CPT/HCPCS: 36415; 36600; 80053; 81001; 82009; 82803; 83036; 83605; 84132; 85025; 87081; 87400; 87430; 87449; 93005; 94660; 96372; 96374; 99285